=== PATIENT | male | born 1960 | race Caucasian/White ===

== ENCOUNTER 2019-09-30 07:14 | Outpatient (CLI) | payer OTHER ==
[~2019-09-30] VITALS: Ht 190.5 cm; Wt 98.0 kg
[2019-09-30] VITALS (9 sets, daily range): BP systolic 112–126; BP diastolic 66–78
--- NOTE | ~2019-09-30 | P ---
[facility] [place] [address] PROCEDURE REPORT Name: MAHI RODRIGUEZ Room #: DEP CARTER Tellez#: [id number] Admission: 09/30/19 Attend Phys: Fortunato Rachel MD Discharge: 10/01/19 Date of : 60 Report #: [id number] THIS REPORT FOR: cc: Kash May MD, Cabot L. MD Couchonnal, Luis F. MD ~ CC: Kash Rachel DATE OF SERVICE: 10/01/2019 ATRIAL FLUTTER ABLATION PROCEDURES PERFORMED: 1. Atrial fibrillation ablation, CPT code 49467. 2. 3D mapping, CPT code 18761. 3. Intracardiac echocardiography, CPT code 62851. 4. Focal ablation, CPT code 08029. 5. Second pathway ablation, CPT code 84418. HISTORY: The patient is a 58-year-old male with a history of prior mitral valve repair surgery who has recently had recurrent atrial fibrillation and an atypical atrial flutter. He is here for atrial fibrillation and atrial flutter ablation. ANESTHESIA: The patient underwent general anesthesia with no anesthesia related complications. DESCRIPTION OF PROCEDURE: The patient underwent informed consent. We discussed the details of the procedure including the risks, which include but not limited to bleeding, vascular damage, stroke, OR as well as damage to the [place] conduction system requiring permanent pacemaker. He understood these risks and is willing to proceed. The patient was brought to EP laboratory in fasting and sedated state and prepped and draped in a standard fashion. I obtained access to the right femoral vein x 3 and the left femoral vein x 1. In the right femoral vein, I placed an 8-Slovak, 7-Slovak and 9-Slovak short sheath and in the left femoral vein, I placed a 6-Slovak short sheath. Next, under fluoroscopy, I placed a decapolar catheter easily in the coronary sinus and ice catheter into the right atrium. At baseline, the patient was initially in sinus rhythm, but eventually with catheter manipulation, he went into atrial flutter. The patient was then prepped for a transseptal procedure, the patient was systemically heparinized and using an SL1 sheath and a [place] needle, a transseptal was performed. This was straightforward. I advanced the SL1 sheath into the left atrium and then exchanged for the cryoablation sheath. Next, utilizing a PentaRay catheter, a [facility] [address] [place] [address] PROCEDURE REPORT Name: MAHI RODRIGUEZ Room #: DEP CARTER Tellez#: [id number] Admission: 09/30/19 Attend Phys: Fortunato Rachel MD Discharge: 10/01/19 Date of : 60 Report #: [id number] 3D geometry of the left atrium was created and then exchanged for the cryoballoon. Of note, I attempted to entrain from multiple locations in the left atrium and everything was long from the left atrium, suggesting that this flutter was likely right side. It was also long from CS1-2 and CS9-10. Next, I placed the cryoballoon into the left atrium and we started by isolating the pulmonary veins and this was quite straightforward. The left superior pulmonary vein underwent a 160-second freeze followed by 180-second freeze. The vein isolated during the first freeze within 30 seconds. The left inferior pulmonary vein underwent two 4-minute freezes and the vein isolated within 45 seconds of the second freeze. The right superior pulmonary vein underwent a single freeze and appeared isolated after this freeze. The right inferior pulmonary vein underwent a 4-minute freeze and isolated within 35 seconds. Isolation of the left-sided pulmonary veins did not affect the atrial flutter. Therefore, I left my cryo sheath in the left atrium and we started mapping the atrial flutter on the right. The initial atrial flutter had a cycle length of about 450 milliseconds. It did terminate while I was mapping and then I induced another flutter that was 330 milliseconds. Occasionally, this would terminate as well, but with some atrial burst pacing, the patient would go back into his atrial flutter. Based on her MAP, it did not appear that it was difficult to determine where this flutter was arising front. There was time where I paced in the high right atrium and the PPI minus tachycardia cycle length appeared to be around 20 milliseconds, but then this flutter terminated and we started mapping the second flutter and then the third flutter. When the patient would transition between these 2 or 3 different flutters, I would perform entrainment from the left atrium again and it was always long from the left atrium. At this point, I decided that this was likely a right-sided flutter, but it kept terminating. At one point, I decided to perform an empiric cavotricuspid isthmus dependent flutter ablation. I performed ablation along the isthmus using a Double [employer] ThermoCool ablation catheter at 40-50 regan and performed a continuous drag lesion. Of note, there was significant scar throughout the right atrium and a lot of the scar was around the likely aortotomy scar from his prior open heart surgery. After completing my CTI line, I tried to see if we could still induce flutter and again he was easily inducible. Eventually, I was able to get his arrhythmia to stabilize at around 330 milliseconds and there appeared to be a large area of scar tissue around the site of his prior aortotomy scar. There also appeared to be a slow area of conduction in this location as well. Therefore, I entrained from this location and the PPI minus tachycardia cycle length was essentially 0. I therefore performed ablation at this site and within about 30-60 seconds, there was slowing of the atrial flutter and then termination. Therefore, I decided to perform extensive ablation along this scar region and connected 2 areas of denser scar and homogenized this area of slow conduction. I would check for phrenic nerve at this location prior to ablating as well. After performing extensive ablation at this site, none of the atypical flutters could be induced again. As noted, he did have atrial flutters that were 450, 330 milliseconds and a third flutter as well and after reviewing the MAPs, it appears that everything was likely utilizing this area of slow [facility] [address] [place] [address] PROCEDURE REPORT Name: MAHI RODRIGUEZ GABBI Room #: DEP [facility] Rosalinda#: [id number] Admission: 09/30/19 Attend Phys: Fortunato Rachel MD Discharge: 10/01/19 Date of : 60 Report #: [id number] conduction just lateral to the right atrial appendage. As such, the patient was no longer inducible. Using intracardiac ultrasound, I verified there was no pericardial effusion. Once the ACT was within acceptable range, catheters and sheaths were pulled and hemostasis was obtained. Of note, a ramp sheath was utilized for ablation of his cavotricuspid isthmus. CONCLUSIONS: 1. Successful AFib ablation with isolation of the 4 pulmonary veins using cryoablation. 2. Successful cavotricuspid isthmus dependent flutter ablation. 3. Successful ablation of a right-sided atrial flutter utilizing a circuit from his prior aortotomy scar. By: 1235 [id number] Fortunato Rachel MD /nt
[~2019-09-30 07:14] MED LIST: AMIODARONE HCL400 MG PO; ASPIRIN81 M2 PO; CARVEDILOL3.125 MG PO; CLARITIN10 MG PO; DILTIAZEM 24HR240 M1 PO; FLECAINIDE ACET50 M1 PO; XARELTO20 MG PO
[2019-09-30 08:02] LABS: ABSOLUTE NEUTROPHILS 3.8 thou/uL (1.4-8.2); BASOPHILS 1.2 % (0.0-2.0); EOSINOPHILS 3.8 % (0.0-3.0); HEMATOCRIT 42.3 % (42.0-52.0); HEMOGLOBIN 14.2 gm/dL (14.0-18.0); LYMPHOCYTES 13.9 % (24.0-44.0); MCH 31.4 pg (26.0-34.0); MCHC 33.7 g/dL (28.0-37.0); MCV 93.2 fL (80.0-100.0); MONOCYTES 9.6 % (1.0-8.0); PLATELET COUNT 213 thou/uL (150-400); POLYS 71.5 % (36.0-66.0); RBC 4.54 mil/uL (4.50-6.00); RDW 12.8 % (10.5-14.5); WBC 5.4 thou/uL (4.0-11.0)
[2019-09-30 08:21] LABS: INR 1.1; PROTIME 11.2 Seconds (9.3-11.4)
[2019-09-30 08:40] LABS: CALCIUM 8.9 mg/dL (8.5-10.1); CREATININE 1.2 mg/dL (0.7-1.3); POTASSIUM 4.1 mmol/L (3.5-5.1)
[2019-09-30 08:46] LABS: ALBUMIN 4.2 g/dL (3.4-5.0); TOTAL BILIRUBIN 0.6 mg/dL (<0.1-1.0); TOTAL PROTEIN 7.3 g/dL (6.4-8.2)
[2019-10-01 00:30] VITALS: BP 105/65
[2019-10-01 04:45] VITALS: BP 119/65
[2019-10-01 07:35] VITALS: BP 114/66
[2019-10-01 09:05] VITALS: BP 114/66
[2019-10-01 09:12] VITALS: BP 114/66
--- NOTE | 2019-10-02 13:03 | D ---
[facility] [place] [address] DISCHARGE SUMMARY Name: JENNIFERMAHI SEO Room #: DEP CARTER Tellez#: [id number] Admission: 09/30/19 Attend Phys: Fortunato Rachel MD Discharge: 10/01/19 Date of : 60 Report #: [id number] THIS REPORT FOR: //name// CC: Kash Rachel DISCHARGE SUMMARY DISCHARGE DIAGNOSES: 1. Atypical atrial flutter. 2. Atrial fibrillation. 3. History of surgical mitral valve repair. HISTORY OF PRESENT ILLNESS: The patient is a 58-year-old female with a history of prior mitral valve repair, has had clinical recurrence of atrial fibrillation and atypical atrial flutter. He is here for AFib ablation and atrial flutter ablation. The patient underwent successful isolation of the pulmonary veins and then he was found to have an atypical flutter that was arising from the right atrium that was utilizing his prior atriotomy scar. Ablation at this site resulted in termination and no further ability to induce this flutter. Procedure was without any procedure-related complications. HOSPITAL COURSE: The patient was admitted to the CCU overnight and did well without any complications. On the day of discharge, the patient denied fevers or chills, chest pain, shortness of breath or groin discomfort. PHYSICAL EXAMINATION: GENERAL: No acute distress. HEART: Regular rate and rhythm. LUNGS: Clear to auscultation bilaterally. EXTREMITIES: Bilateral groins with no significant bruising or hematoma. On telemetry, he remained in sinus rhythm throughout the night. As such, he was deemed stable for discharge home. We will discontinue his antiarrhythmic drugs. We will continue with Xarelto 20 and diltiazem. Discharge instructions were reviewed and he will follow up with me in 3 months. <ELECTRONICALLY SIGNED> By: Fortunato Rachel MD 10/02/19 1303 [id number] Fortunato Rachel MD /nt
== END 2019-10-01 11:43 | disposition home or self-care (01) ==
LOC: CATH 07:14 → 2N 15:25 → CATH 18:06
PROVIDERS: Internal Medicine Cardiovascular Disease
DX: I48.91 Unspecified atrial fibrillation (principal); I48.4 Atypical atrial flutter; I10 Essential (primary) hypertension; Z98.890 Other specified postprocedural states; Z79.899 Other long term (current) drug therapy; Z79.01 Long term (current) use of anticoagulants; Z95.2 Presence of prosthetic heart valve; Z98.52 Vasectomy status; Z79.82 Long term (current) use of aspirin
CPT/HCPCS: 10081; 62110; 62900; 65020; 65040; 70005

== ENCOUNTER → 2020-06-01 | Outpatient (CLI) | payer OTHER | LOC: LAB 09:00 | PROVIDERS: ATTEND Internal Medicine Cardiovascular Disease | DX: Z01.812 Encounter for preprocedural laboratory examination (principal); Z20.828 Contact with and (suspected) exposure to other viral communicable diseases ==

== ENCOUNTER 2020-06-06 06:50 | Observation (INO) | payer OTHER ==
[2020-06-06] VITALS (9 sets, daily range): BP systolic 125–137; BP diastolic 68–87
[~2020-06-06] VITALS: Ht 190.5 cm; Wt 93.0 kg
[2020-06-06 07:39] LABS: ABSOLUTE NEUTROPHILS 4.3 thou/uL (1.4-8.2); BASOPHILS 1.2 % (0.0-2.0); EOSINOPHILS 5.3 % (0.0-3.0); HEMATOCRIT 42.2 % (42.0-52.0); HEMOGLOBIN 13.9 gm/dL (14.0-18.0); LYMPHOCYTES 14.4 % (24.0-44.0); MCH 30.2 pg (26.0-34.0); MCV 91.3 fL (80.0-100.0); MONOCYTES 9.7 % (1.0-8.0); PLATELET COUNT 220 thou/uL (150-400); POLYS 69.4 % (36.0-66.0); RBC 4.62 mil/uL (4.50-6.00); RDW 13.9 % (10.5-14.5); WBC 6.2 thou/uL (4.0-11.0)
[2020-06-06] MEDS ORDERED: CLARITIN10 M3 PO (07:40)
[2020-06-06] MEDS ORDERED: MULTAQ400 MG PO (07:40)
[2020-06-06 07:50] LABS: CALCIUM 9.1 mg/dL (8.5-10.1); CREATININE 1.1 mg/dL (0.7-1.3)
[2020-06-06 07:55] LABS: ALBUMIN 4.2 g/dL (3.4-5.0); APTT 30.1 Seconds (24.5-32.8); INR 1.1; PROTIME 10.8 Seconds (9.3-11.4); TOTAL BILIRUBIN 0.9 mg/dL (0.2-1.0); TOTAL PROTEIN 7.7 g/dL (6.4-8.2)
--- NOTE | 2020-06-06 16:15 | NUR ---
ASSUMED CARE POST CARDIAC ABLATION, PT ALERT X4, DENIES PAIN, DENIES SOB. RIGHT GROIN SIGHT C/D/I WITH INSTRUCTIONS TO KEEP IMMOBILIZED UNTIL 1630. LEFT GROIN SIGHT ARE STICKS SIGHT ARE DRY AND OPEN TO AIR. ADMISSION COMPLETED. CONCERNS WITH URINATIG POST PROCEDURE. BESIDE. PT IS OBSERVATION AND WILL DC TOMORROW IF MEDICALLY STABLE. CALL LIGHT AND PERSONAL ITEMS IN REACH. CONTINUE TO MONITOR
[2020-06-07] VITALS: BP 120/81
[2020-06-07 04:00] VITALS: BP 127/81
[2020-06-07 05:30] VITALS: BP 120/81
--- NOTE | 2020-06-07 06:33 | NUR ---
UP INDEPENDENTLY TO THE BATHROOM.VOIDED SEVERAL TIMES BUT LITTLE URINE EVERYTIME HE URINATES.HAD NOT HAD ANY BOWEL MOVEMENT IN 4 DAYS WELL BUT CLAIMS THAT THIS IS NORMAL FOR HIM.MONITOR SHOWS SR.DENIES PAIN.POC CONTINUED.
[2020-06-07 08:00] VITALS: BP 124/77
[2020-06-07 11:24] VITALS: BP 124/77
--- NOTE | 2020-06-07 11:27 | NUR ---
RECEIVED PT'S CARE AROUND 0720; PT. ON BED; ALERT; DURING AM ASSESSMENT AOX4; NO C/O PAIN; D/C PROCESS EXPLAINED; EDUCATED ABOUT BLADDER SCANNER; ST. UNDERSTANDING; ASSESSMENT CHARGED; FOLLOWING POC; WORKING ON D/C PROCESS;
[2020-06-07 11:29] VITALS: BP 124/77
--- NOTE | 2020-06-10 13:50 | P ---
[facility] [place] [address] PROCEDURE REPORT Name: MAHI RODRIGUEZ Room #: 214-P [facility] Claritza Tellez#: [id number] Admission: 06/06/20 Attend Phys: Fortunato Rachel MD Discharge: 06/07/20 Date of : 60 Report #: [id number] THIS REPORT FOR: cc: Kash May MD, Cabot L. MD Couchonnal, Luis F. MD ~ CC: Kash Rachel DATE OF SERVICE: 06/06/2020 SVT ABLATION PREOPERATIVE DIAGNOSIS: Atypical atrial flutter. POSTOPERATIVE DIAGNOSES: 1. Right-sided atypical atrial flutter. 2. Focal atrial tachycardia arising near the coronary sinus ostium. PROCEDURES PERFORMED: 1. SVT ablation, CPT code 15420. 2. Left atrial pacing and recording, CPT code 28202. 3. Program stimulation pacing after IV drug infusion, CPT code 53260. 4. Intracardiac echo, CPT code 22137. 5. 3D mapping, CPT code 74826. 6. Second pathway ablation, CPT code 10522. HISTORY: The patient is a 59-year-old male with history of prior mitral valve repair with a history of atrial fibrillation and atrial flutter, status post ablation back in 09/21/2019. At that time, his veins were isolated, but he was found to have a right-sided atrial flutter that appeared to be caused by his prior right atriotomy scar. At that time, he was rendered non-inducible but after stopping antiarrhythmic drugs, he started having recurrent atypical atrial flutter. He is here for repeat ablation. ANESTHESIA: The patient underwent general anesthesia with no anesthesia related complications. DESCRIPTION OF PROCEDURE: The patient underwent informed consent. We discussed the details of the procedure including the risks, which include but not limited to bleeding, vascular damage, stroke, VA as well as damage to the [place] conduction system requiring permanent pacemaker. He understood these risks and was willing to proceed. The patient was brought to EP laboratory in a fasting and sedated state. I placed an 8, 6, 9 and 7 Cymro short sheath in the right femoral vein, I [facility] [address] [place] [address] PROCEDURE REPORT Name: PREMAVALERIOLEIFMAHI Room #: 214-P [facility] M..#: [id number] Admission: 06/06/20 Attend Phys: Fortunato Rachel MD Discharge: 06/07/20 Date of : 60 Report #: [id number] to [address] a sheath in the left femoral vein, but could not easily obtain access. Next, under fluoroscopy, I placed a Decapolar catheter easily in the coronary sinus and ICE catheter into the right atrium, which I used for 3D anatomy. Next, a basic EP study was then performed. At baseline, the patient was in sinus rhythm with sinus cycle length of 860 milliseconds, IA interval 157 milliseconds, QRS duration 110 milliseconds, QT interval 466 milliseconds. Next, atrial pacing was performed and AV block was noted at 360 milliseconds. Atrial ERP was noted at 250 milliseconds at a [address] cycle length. When I paced the atrium at around 300 milliseconds, the patient went into atrial flutter. The tachycardia cycle length was 450 milliseconds. This appeared to be similar to the prior atrial flutter that we ablated. 3D MAPPING AND ABLATION OF SUPRAVENTRICULAR TACHYCARDIA #1: Next, I used a PentaRay and created a detailed 3D geometry of the right atrium. This showed again there was extensive scar tissue throughout the right atrium. Along the posterior lateral wall, rinku was a significant area of fractionated atrial electrograms with areas of very slow conduction. It appeared that the flutter was originating from this region. There were some channels of normal tissue that appeared to be along the atrial flutter to conduct in this region. The patient had multiple atrial flutters of variable cycle lengths that originated from this region. The initial flutter was 450 milliseconds, but there was another flutter that was quite stable at 330 milliseconds. This was all mapped to this region and therefore, I performed extensive ablation in this region at around 35 regan until this area was homogenized. Prior to ablation in these regions, I did perform high output pacing and there was never any phrenic nerve compromise. After extensive substrate modification in this region and taking care of these bridges of normal tissue, the atrial flutter finally terminated. This was after multiple hours of ablation and remapping of multiple different flutters that all appeared to be originating from this area of scar tissue. Post-ablation additional pacing maneuvers were performed and the patient had another arrhythmia. MAPPING AND ABLATION OF SUPRAVENTRICULAR TACHYCARDIA #2: The patient then was found to have another SVT that was 550 milliseconds. It had a negative P waves in II, III and aVF. Entrainment from CS 9-10 showed a PPI minus tachycardia cycle length of 20 milliseconds. This was the first arrhythmia throughout this procedure that could actually entrain. Therefore, this arrhythmia was mapped and I looked inside the CS, but it was later in here and in fact it was earliest in the slow pathway region. I was able to demonstrate that there was AV dissociation and clearly this was not AVNRT. As such, I again mapped this tachycardia using the PentaRay which we used for the atrial flutter. I then did further mapping via the Agilis sheath and the [employer]ce ThermoCool ablation catheter and narrowed this down to a focal region and the slow pathway. Catheter manipulation at this site would result in termination, but pacing at around 300-350 milliseconds, would re-induce this focal atrial tachycardia. Therefore, I did put a quadripolar catheter into the right ventricle for pacing. [facility] [address] [place] [address] PROCEDURE REPORT Name: MAHI RODRIGUEZ Room #: 214-P [facility]#: [id number] Admission: 06/06/20 Attend Phys: Fortunato Rachel MD Discharge: 06/07/20 Date of : 60 Report #: [id number] Of note, while pacing, there was evidence of no VA conduction. I measured the AH interval, which was 85 milliseconds, HV interval 47 milliseconds and the distance between the slow pathway region and the His was quite large as the patient had a very large right atrium and a very large tricuspid annulus and large right ventricle. In fact, I had difficulties initially getting a 5-Cymro quad to pace the right ventricle due to its large size, so I did exchange to a 6-Cymro quadripolar catheter, which allowed for better stability in the RV. As such that the arrhythmia was reinduced, and I ablated at the earliest site and this resulted in termination of the atrial tachycardia within 5 seconds. Ablation was performed initially at 25 regan. Insurance lesion was performed at this site as well at 30 regan and conduction was stable throughout. Post-ablation, an EP study was performed. I could no longer induce his atypical atrial flutter, nor could I induce his atrial tachycardia. Of note, during ablation of his atypical atrial flutter. I did use isoproterenol to make this rhythm more stable as it would terminate with catheter manipulation. As such, this was a long procedure lasting approximately 5 hours due to the multiple flutter cycling atrial flutters and a focal atrial tachycardia. Using intracardiac ultrasound, I verified there was no pericardial effusion. Catheters and sheaths were pulled and hemostasis was obtained. The patient awoke neurologically and hemodynamically intact. No complications and no significant bleeding. CONCLUSIONS: 1. Successful ablation of multiple atypical atrial flutters arising from the right atrium from extensive atrial fibrosis rendered non-inducible. 2. Successful ablation of an atrial tachycardia arising from the slow pathway region. 3. Normal SA cristina function. 4. Normal AV cristina function. 5. Normal His-Purkinje function. 6. No other inducible arrhythmias on or off isoproterenol. <ELECTRONICALLY SIGNED> By: Fortunato Rachel MD 06/10/20 1350 [id number] 31 Fortunato Rachel MD /nt
== END 2020-06-07 11:57 | disposition home or self-care (01) ==
LOC: CATH 06:50 → TBA 11:02 → CATH 13:34 → 2N 14:44 → CATH 15:15 → 2N 06-07 11:57
PROVIDERS: ADMIT Internal Medicine Cardiovascular Disease; ATTEND Internal Medicine Cardiovascular Disease
DX: I48.4 Atypical atrial flutter (principal); I47.1 Supraventricular tachycardia; I48.91 Unspecified atrial fibrillation; Z79.82 Long term (current) use of aspirin; Z79.899 Other long term (current) drug therapy
CPT/HCPCS: 62110; 62900; 70005